=== PATIENT | female | born 1985 | race Caucasian/White ===

== ENCOUNTER 2025-01-06 09:51 | Outpatient (CLI) | payer BC, SELFPAY ==
--- NOTE | ~2025-01-06 | XR_ITS ---
EXAMINATION: XR lumbar spine 2-3V DATE: 01/06/2025 10:22 INDICATION: Radiculopathy, lumbar region. TECHNIQUE: 3 views of lumbar spine were obtained. COMPARISON: Lumbar spine radiographs 07/24/2018 FINDINGS: There is 7 degrees dextrocurvature of lumbar spine. Vertebral body heights are normal. Ther e is moderately decreased disc height at T11-T12. There is mild facet joint osteoarthritis in lower l umbar spine. IMPRESSION: 1. Moderate spondylosis at T11-T12. Reviewed, dictated and finalized at location A. [facility]
== END 2025-01-06 09:52 | disposition home or self-care (01) ==
LOC: CHSIMG 09:54
PROVIDERS: PCP Family Medicine; Visit Provider Family Medicine
DX: M54.16 Radiculopathy, lumbar region (principal); M43.04 Spondylolysis, thoracic region
CPT/HCPCS: 72100